=== PATIENT | female | born 1945 | race Caucasian/White ===

== ENCOUNTER 2024-04-25 14:41 | Emergency (ER) | payer MEDICARE ==
[~2024-04-25] VITALS: Ht 157.5 cm; Wt 68.0 kg
[2024-04-25 14:52] VITALS: PULSE 98; RESP 18; TEMP 99.3; O2SAT 100
[2024-04-25] MEDS ORDERED: PAXLOVID 300-11 EAC1 PO (15:44)
== END 2024-04-25 16:10 | disposition home or self-care (01) ==
LOC: ER 15:15
DX: R50.9 Fever, unspecified (principal); U07.1 COVID-19; I10 Essential (primary) hypertension; E78.5 Hyperlipidemia, unspecified; M06.9 Rheumatoid arthritis, unspecified; H40.9 Unspecified glaucoma
CPT/HCPCS: 0223U; 36415; 99283